=== PATIENT | male | born 1960 | race American Indian/Alaskan Native ===

== ENCOUNTER 2019-04-15 20:02 | Emergency (ER) | payer MEDICARE ==
[2019-04-15 20:55] LABS: Basophils # (Auto) 0.1 K/mm3 (0.0-0.1); Basophils % (Auto) 0.8 % (0.0-1.8); Eosinophils # (Auto) 0.1 K/mm3 (0.0-0.4); Eosinophils % (Auto) 0.8 % (0.0-4.3); Hematocrit 51.6 % (35.5-45.6); Lymphocytes # (Auto) 1.8 K/mm3 (1.2-5.4); Lymphocytes % (Auto) 27.6 % (13.4-35.0); Mean Corpuscular HGB Conc 33 % (32-34); Mean Corpuscular Volume 93 fl (84-94); Monocytes # (Auto) 0.4 K/mm3 (0.0-0.8); Monocytes % (Auto) 5.3 % (0.0-7.3); Platelet Count 266 K/mm3 (140-440); Red Blood Count 5.56 M/mm3 (3.65-5.03); Red Cell Distribution Width 14.7 % (13.2-15.2)
[2019-04-15 21:09] LABS: BUN/Creatinine Ratio 9; Blood Urea Nitrogen 9 mg/dL (9-20); Calcium 10.1 mg/dL (8.4-10.2); Hemolysis Index 10
[2019-04-15 21:14] LABS: INR > 17.67 (0.87-1.13); Partial Thromboplastin Time 89.4 Sec. (24.2-36.6)
--- NOTE | 2019-04-15 21:20 | Cat Scan Report ---
CT HEAD WITHOUT CONTRAST INDICATION / CLINICAL INFORMATION: MAIN: neuro deficits <6hrs or sx present upon awakening; CODE STROKE; C/O WEAKNESS; PATIENT IS BLIND. . TECHNIQUE: All CT scans at this location are performed using CT dose reduction for ALARA by means of automated e xposure control. COMPARISON: None available. FINDINGS: HEMORRHAGE: No evidence of intracranial hemorrhage or extra-axial fluid collection. EXTRA-AXIAL SPACES: Cortical sulci, sylvian fissures and basilar cisterns have an unremarkable appear ance. VENTRICULAR SYSTEM: The ventricular system is of normal size and configuration. CEREBRAL PARENCHYMA: An area of decreased attenuation is observed in the left temporal and parietal l obes. The possibility of subacute left MCA infarction should be considered. Follow-up with magnetic r esonance imaging would be useful for further evaluation of this finding. No additional areas of abnor mal brain parenchymal attenuation are identified MIDLINE SHIFT OR HERNIATION: There is no mass effect. CEREBELLUM / BRAINSTEM: Brainstem and cerebellum have an unremarkable appearance. INTRACRANIAL VESSELS:No abnormalities are identified on this noncontrast head CT. ORBITS: The globes are decreased in size bilaterally obtain multifocal calcifications compatible with bilateral phthisis bulbi. SOFT TISSUES of HEAD: No significant abnormality. CALVARIUM: Evaluation of bone windows reveals no abnormalities. PARANASAL SINUSES / MASTOID AIR CELLS: Paranasal sinuses are free from inflammatory mucosal disease. Mastoid air cells are normally pneumatized. IMPRESSION: 1. Decreased attenuation in the left temporal and parietal lobes may reflect recent infarction in a l eft MCA distribution. Correlation with magnetic resonance imaging is suggested for further evaluation if clinically warranted. Code stroke patient: I called a report of this study to Dr. Chu at about 2000 hours (Central standard time) Signer Name: Cecil Moon MD Signed: 04/15/2019 9:15 PM Workstation Name: [id number]
[2019-04-15] MEDS ORDERED: oxyCODONE /ACETAMINOPHEN 5-325MG TAB PO ONE (21:26)
--- NOTE | 2019-04-15 21:35 | Emergency Department Report ---
ED Headache HPI - General Chief Complaint: Neuro Symptoms/Deficit Stated Complaint: HEADACHE BODY PAIN Time Seen by Provider: 04/15/19 20:35 Source: patient, family Exam Limitations: no limitations - History of Present Illness Initial Comments: Mr. Barber is a 58 yo male with hx of blindness, and recent CVA. Mr. Barber presents with headache. He has had headache for the past 2 days. Recently dc'd from rehabilitation on Monday 3 days ago. On March 20, he was treated from stroke at [facility]. He has right hand weakness due to the stroke. He was blind prior to the stroke. He was doing well. Now on Lovenox. Also on Keppra. Headache is dull 5/10 "annoying." is now caregiver. She wanted to make sure "everything was ok." Other medications include Norvasc, Vimpat, Lisinopril Timing/Duration: other (2 days) Quality: moderate, sharp Head Injury Location: global Recent Head Trauma: other (recent CVA) Associated Symptoms: denies symptoms Allergies/Adverse Reactions: Allergies No Known Allergies Allergy (Unverified 04/15/19 20:13) Home Medications: Ambulatory Orders Amlodipine Besylate [Norvasc] 10 mg PO QDAY 04/15/19 Lisinopril [Zestril] 20 mg PO QDAY 04/15/19 levETIRAcetam [Keppra TAB] 500 mg PO BID 04/15/19 ED Review of Systems ROS: Stated complaint: HEADACHE BODY PAIN Other details as noted in HPI Comment: All other systems reviewed and negative Constitutional: denies: fever, malaise Respiratory: denies: cough ED Past Medical Hx - Past Medical History Previous Medical History?: Yes Hx Hypertension: Yes Hx CVA: Yes - Surgical History Past Surgical History?: No - Family History Family history: hypertension - Social History Substance Use Type: None - Medications Home Medications: Home Medications Medication Instructions Recorded Confirmed Last Taken Type Amlodipine Besylate [Norvasc] 10 mg PO QDAY 04/15/19 04/15/19 Unknown History Lisinopril [Zestril] 20 mg PO QDAY 04/15/19 04/15/19 Unknown History levETIRAcetam [Keppra TAB] 500 mg PO BID 04/15/19 04/15/19 Unknown History ED Physical Exam - General Limitations: Altered Mental Status General appearance: alert, in no apparent distress - Head Head exam: Present: atraumatic, normocephalic - Eye Eye exam: Present: other (patient is blind) - ENT ENT exam: Present: mucous membranes moist - Neck Neck exam: Present: normal inspection, full ROM - Respiratory Respiratory exam: Present: normal lung sounds bilaterally. Absent: respiratory distress, wheezes, rales, rhonchi - Cardiovascular Cardiovascular Exam: Present: regular rate, normal rhythm, normal heart sounds. Absent: systolic murmur, diastolic murmur, rubs, gallop - GI/Abdominal GI/Abdominal exam: Present: soft, normal bowel sounds. Absent: distended, tenderness, guarding, rebound - Rectal Rectal exam: Present: deferred - Extremities Exam Extremities exam: Present: normal inspection - Back Exam Back exam: Present: normal inspection - Neurological Exam Neurological exam: Present: alert, oriented X3, normal gait, other (right hand residual weakness) - Expanded Neurological Exam Expanded Patient oriented to: Present: person, place, time Speech: Present: fluid speech Cranial nerves: Nystagmus: Normal Cerebellar function: Finger to Nose: Normal Upper motor neuron: Pronator Drift: Abnormal Right Sensory exam: Upper Extremity Light Touch: Normal Motor strength exam: RUE: 3, LUE: 5, RLE: 5, LLE: 5 Best Eye Response (Danni): (4) open spontaneously Best Motor Response (Danni): (6) obeys commands Best Verbal Response (Danni): (5) oriented [place] Total: 15 - Psychiatric Psychiatric exam: Present: normal affect, normal mood - Skin Skin exam: Present: warm, dry, intact, normal color. Absent: rash ED Course Vital Signs 04/15/19 20:45 Temperature 98.5 F Pulse Rate 62 Respiratory 15 Rate Blood Pressure 145/83 [Right] O2 Sat by Pulse 98 Oximetry ED Medical Decision Making - Lab Data Result diagrams: 04/15/19 20:25 04/15/19 20:25 Laboratory Results - last 24 hr 04/15/19 04/15/19 04/15/19 20:19 20:25 20:25 WBC 6.6 RBC 5.56 H Hgb 17.0 H Hct 51.6 H MCV 93 MCH 31 MCHC 33 RDW 14.7 Plt Count 266 Lymph % (Auto) 27.6 [place] % (Auto) 5.3 Eos % (Auto) 0.8 Baso % (Auto) 0.8 Lymph # 1.8 [place] # 0.4 Eos # 0.1 Baso # 0.1 Seg Neutrophils % 65.5 Seg Neutrophils # 4.3 PT > 120.0 H INR > 17.67 H* APTT 89.4 H* Thrombin Time Sodium Potassium Chloride Carbon Dioxide Anion Gap BUN Creatinine Estimated GFR BUN/Creatinine Ratio Glucose POC Glucose 121 H Calcium Troponin T 04/15/19 04/15/19 20:25 20:25 WBC RBC Hgb Hct MCV MCH MCHC RDW Plt Count Lymph % (Auto) [place] % (Auto) Eos % (Auto) Baso % (Auto) Lymph # [place] # Eos # Baso # Seg Neutrophils % Seg Neutrophils # PT INR APTT Thrombin Time 19.0 Sodium 143 Potassium 4.6 Chloride 103.0 Carbon Dioxide 23 Anion Gap 22 BUN 9 Creatinine 1.0 Estimated GFR > 60 BUN/Creatinine Ratio 9 Glucose 131 H POC Glucose Calcium 10.1 Troponin T < 0.010 - EKG Data 04/15/19 22:15 EKG obtained 2035 NSR rate 70 bpm nl axis no ST elevation biphasic T wave - Radiology Data Radiology results: report reviewed CT head: decreased attentuation left temporal and parietal lobes, recent infarction left MCA distribution - Medical Decision Making Mr. Barber presents with mild headache. CT head obtained to rule out hemorrhagic conversion of recent ischemic CVA. He is currently at baseline. Has been compliant with medications with 's assistance. Recommended Tylenol for headache. labs obtained all within normal limit except markedly elevated PTT PT INR confirmed to be lab error with normal INR on redraw. dc'd home Critical care attestation.: If time is entered above; I have spent that time in minutes in the direct care of this critically ill patient, excluding procedure time. ED Disposition Clinical Impression: Tension headache, History of CVA (cerebrovascular accident) Disposition: DC-01 TO HOME OR SELFCARE Is pt being admited?: No Does the pt Need Aspirin: No Instructions: Acute Headache (ED) Referrals: PRIMARY CARE, [Referring] - 3-5 Days
[2019-04-15 22:16] LABS: INR 1.02 (0.87-1.13)
[2019-04-15 23:13] VITALS: BP 143/79
== END 2019-04-15 23:23 | disposition home or self-care (01) ==
LOC: ED 20:02
DX: G44.209 Tension-type headache, unspecified, not intractable (principal); I10 Essential (primary) hypertension; Z86.73 Personal history of transient ischemic attack (TIA), and cerebral infarction without residual deficits; Z79.899 Other long term (current) drug therapy
CPT/HCPCS: 36415; 70450; 80048; 82962; 84484; 85025; 85610; 85670; 85730; 93005; 93010; 99284